=== PATIENT | female | born 1985 | race Caucasian/White ===

== ENCOUNTER 2016-10-26 17:52 | Emergency (ER) | payer OTHER, SELFPAY ==
[~2016-10-26] VITALS: Ht 175.3 cm; Wt 117.9 kg
[~2016-10-26 17:52] MED LIST: /WARF5TA OR; ACET500C OR; ACET500T2 OR; ACET50TA PO; ACET65TA AD; ALEVE PO; DOXY100T OR; FERR325T OR; FERROUS SULFATE; IBUP600T OR; IBUP60TA PO; IBUP800T23 PO; LOVE1INJ SC; METHERGINE PO; No Historical Meds; PERC5TAB6 PO; PERC5TAB8 OR; VIBR100C OR; VITAPRTA PO; lovenox SC
[2016-10-26] MEDS ORDERED: NORCO, ANEXSIA 5/325MG TABLET (HYDROcodone/ACETAMINOPHEN) PO ONE (19:15)
--- NOTE | 2016-10-26 19:49 | REP ---
Clinical: Trauma. Deformity and swelling. Technique: AP, lateral, bilateral oblique views of the left ankle. Findings: Moderate soft tissue swelling over the lateral malleolus is consistent with inversion injury. While there is no definite acute fracture, a subtle cortical defect along the lateral margin of the distal fibular metaphysis is identified on single image (image 3) and may represent degenerative change or subtle incomplete fracture. Correlation and close clinical observation may be warranted. Impression: Lateral swelling. Cannot exclude a very subtle cortical break along the lateral fibular metaphysis and close clinical observation may be warranted. Signed by Chriss Gaines MD 10/26/2016 07:41 P
[2016-10-26] MEDS ORDERED: HYDR-3713 PO (19:55)
[2016-10-26 20:02] VITALS: BP 144/94
== END 2016-10-26 20:20 | disposition home or self-care (01) ==
LOC: M ED 19:38
DX: S82.402A Unspecified fracture of shaft of left fibula, initial encounter for closed fracture (principal); X50.9XXA Other and unspecified overexertion or strenuous movements or postures, initial encounter; Y92.481 Parking lot as the place of occurrence of the external cause; Y93.89 Activity, other specified; Y99.9 Unspecified external cause status; F17.200 Nicotine dependence, unspecified, uncomplicated; Z88.1 Allergy status to other antibiotic agents

== ENCOUNTER 2017-12-29 10:09 | Emergency (ER) | payer OTHER ==
[2017-12-29] MEDS: KETOROLAC 60 MG/2 ML VIAL (J1885) IM (10:50)
== END 2017-12-29 13:27 | disposition home or self-care (01) ==
LOC: M ED 10:09
DX: M17.12 Unilateral primary osteoarthritis, left knee (principal); M54.5 Low back pain; M51.36 Other intervertebral disc degeneration, lumbar region; F17.200 Nicotine dependence, unspecified, uncomplicated; F41.9 Anxiety disorder, unspecified; F33.9 Major depressive disorder, recurrent, unspecified; Z88.1 Allergy status to other antibiotic agents; Z86.69 Personal history of other diseases of the nervous system and sense organs; Z86.79 Personal history of other diseases of the circulatory system; Z86.718 Personal history of other venous thrombosis and embolism
CPT/HCPCS: J1885

== ENCOUNTER 2018-05-17 13:10 | Emergency (ER) | payer OTHER ==
[2018-05-17] MEDS: KETOROLAC 60 MG/2 ML VIAL (J1885) IM (14:37)
== END 2018-05-17 14:51 | disposition home or self-care (01) ==
LOC: M ED 13:10
DX: R51 Headache (principal); G62.9 Polyneuropathy, unspecified; F41.9 Anxiety disorder, unspecified; F33.9 Major depressive disorder, recurrent, unspecified; F17.200 Nicotine dependence, unspecified, uncomplicated; Z86.718 Personal history of other venous thrombosis and embolism; Z88.1 Allergy status to other antibiotic agents
CPT/HCPCS: J1885

== ENCOUNTER 2018-07-21 23:15 | Emergency (ER) | payer OTHER ==
[~2018-07-21] VITALS: Ht 172.7 cm; Wt 127.3 kg
[2018-07-21 23:15] VITALS: BP 133/78
[~2018-07-21 23:15] MED LIST changes: +ACET-683 PO; -ACET50TA PO; +HYDR-3713 PO; +IBUP1TAB7 PO; +IBUP200C25 PO; -IBUP800T23 PO; +MAPA500T2 PO; +MOBI4TAB PO; +PERC5TAB12 PO; -PERC5TAB6 PO; +ZANA4TAB PO
--- NOTE | 2018-07-23 00:44 | ECGEPIP ---
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
== END 2018-07-22 03:15 | disposition left against medical advice (07) ==
LOC: M ED 23:15
DX: R07.9 Chest pain, unspecified (principal); Z53.21 Procedure and treatment not carried out due to patient leaving prior to being seen by health care provider

== ENCOUNTER → 2018-07-22 | Outpatient (REF) | payer OTHER ==
[2018-07-22 18:08] LABS: INFLUENZA A AMPLIFICATION POSITIVE (NEGATIVE); INFLUENZA B AMPLIFICATION NEGATIVE (NEGATIVE)
== END ==
LOC: M LAB REF 17:15
PROVIDERS: ATTEND Physician Assistant
DX: J11.1 Influenza due to unidentified influenza virus with other respiratory manifestations (principal)

== ENCOUNTER 2018-11-27 13:06 | Emergency (ER) | payer OTHER, SELFPAY ==
[~2018-11-27] VITALS: Ht 172.7 cm; Wt 127.3 kg
[~2018-11-27 13:06] MED LIST changes: -/WARF5TA OR; +COUM1TAB17 OR; +IBUP600T42 PO; -IBUP60TA PO
[2018-11-27 13:07] VITALS: BP 142/66
[2018-11-29] MEDS ORDERED: AMOX500C PO (18:38)
== END 2018-11-27 14:14 | disposition home or self-care (01) ==
LOC: M ED 13:06
DX: J02.9 Acute pharyngitis, unspecified (principal); Z88.1 Allergy status to other antibiotic agents; F17.210 Nicotine dependence, cigarettes, uncomplicated

== ENCOUNTER → 2019-06-14 | Outpatient (REF) | payer MEDICAID ==
[~2019-06-14] MED LIST changes: +AMOX500C PO
[2019-06-14 15:05] LABS: INFLUENZA A AMPLIFICATION NEGATIVE (NEGATIVE); INFLUENZA B AMPLIFICATION NEGATIVE (NEGATIVE)
== END ==
LOC: M LAB REF 14:20
PROVIDERS: ATTEND Physician Assistant Medical
DX: R50.9 Fever, unspecified (principal)

== ENCOUNTER 2020-10-04 23:23 | Emergency (ER) | payer OTHER ==
[~2020-10-04] VITALS: Ht 172.7 cm; Wt 130.2 kg
[2020-10-04 23:24] VITALS: BP 144/95
== END 2020-10-05 00:32 | disposition home or self-care (01) ==
LOC: M ED 23:23
DX: U07.1 COVID-19 (principal); Z86.718 Personal history of other venous thrombosis and embolism

== ENCOUNTER 2021-11-26 16:55 | Emergency (ER) | payer OTHER ==
[~2021-11-26] VITALS: Ht 172.7 cm; Wt 129.4 kg
[2021-11-26 21:11] VITALS: BP 128/78
== END 2021-11-26 21:14 | disposition home or self-care (01) ==
LOC: M ED 16:55
DX: G56.92 Unspecified mononeuropathy of left upper limb (principal); G43.909 Migraine, unspecified, not intractable, without status migrainosus; G89.29 Other chronic pain; M54.9 Dorsalgia, unspecified; Z86.718 Personal history of other venous thrombosis and embolism; F17.200 Nicotine dependence, unspecified, uncomplicated; Z88.1 Allergy status to other antibiotic agents

== ENCOUNTER → 2022-10-03 | Outpatient (CLI) | payer OTHER | LOC: M RAD 09:16 | PROVIDERS: ATTEND Orthopaedic Surgery | DX: M25.562 Pain in left knee (principal); M25.462 Effusion, left knee; M94.262 Chondromalacia, left knee; M71.22 Synovial cyst of popliteal space [Baker], left knee; S83.222A Peripheral tear of medial meniscus, current injury, left knee, initial encounter; X58.XXXA Exposure to other specified factors, initial encounter; Y92.9 Unspecified place or not applicable; Y93.9 Activity, unspecified; Y99.9 Unspecified external cause status ==

== ENCOUNTER → 2022-11-07 | Outpatient (CLI) | payer OTHER ==
[2022-11-07 12:22] LABS: HCG, SERUM QUALITATIVE NEGATIVE (NEGATIVE)
== END ==
LOC: M LAB 11:24
PROVIDERS: ATTEND Internal Medicine Endocrinology, Diabetes & Metabolism
DX: Z01.818 Encounter for other preprocedural examination (principal)